=== PATIENT | female | born 2000 | race Caucasian/White ===

== ENCOUNTER → 2025-06-24 | Outpatient (REF) | payer BC | LOC: M PLALAB 14:24 | PROVIDERS: ATTEND Advanced Practice Midwife | DX: Z53.9 Procedure and treatment not carried out, unspecified reason (principal) ==

== ENCOUNTER → 2025-06-24 | Outpatient (CLI) | payer BC ==
[2025-06-24 18:41] LABS: PLATELET COUNT, AUTOMATED 281 10^3/uL (150-450)
[2025-06-24 19:28] LABS: HIV 1&2 SCREEN NEGATIVE (NEGATIVE)
[2025-06-24 19:36] LABS: HEPATITIS C VIRUS ABY INDEX 0.08 INDEX (<0.8)
[2025-06-24 20:14] LABS: Trichomonas vaginalis (AMP) NOT DETECTED (NEGATIVE)
[2025-06-24 20:38] LABS: GC DNA AMPLIFICATION NEGATIVE (NEGATIVE)
== END ==
LOC: M PLALAB 14:44
PROVIDERS: ATTEND Obstetrics & Gynecology
DX: Z34.82 Encounter for supervision of other normal pregnancy, second trimester (principal)

== ENCOUNTER → 2025-06-24 | Outpatient (CLI) | payer BC | LOC: M PLALAB 14:48 | PROVIDERS: ATTEND Advanced Practice Midwife | DX: Z34.80 Encounter for supervision of other normal pregnancy, unspecified trimester (principal) ==